=== PATIENT | male | born 1965 | race Caucasian/White ===

== ENCOUNTER → 2016-08-29 | Day surgery (SDC) | payer BC ==
[2016-08-06 11:18] LABS: HEMATOCRIT 42.2 % (42-52); MEAN CELL VOLUME 87.6 fL (80-100); MEAN CORPUSCULAR HEMOGLOBIN 30.9 pg (25-34); MEAN CORPUSCULAR HGB CONC 35.3 g/dl (32-36); PLATELET COUNT 309 K/uL (130-400); RED BLOOD COUNT 4.82 M/uL (4.7-6.1); WHITE BLOOD COUNT 6.94 K/uL (4.8-10.8)
[2016-08-06 11:44] LABS: BLOOD UREA NITROGEN 14 mg/dl (7-18); BUN/CREATININE RATIO 16.5 (10-20); CALCIUM 9.5 mg/dl (8.5-10.1); CARBON DIOXIDE 27 mmol/L (21-32); CHLORIDE 104 mmol/L (98-107); CREATININE 0.82 mg/dl (0.60-1.40); GLUCOSE 84 mg/dl (70-99); POTASSIUM 4.1 mmol/L (3.5-5.1); SODIUM 140 mmol/L (136-145)
[2016-08-16 12:54] VITALS: Ht 162.6 cm; Wt 84.1 kg
[~2016-08-29] VITALS: Ht 162.6 cm; Wt 84.1 kg
[~2016-08-29] MED LIST: ASPI325T45 EN; ATROPINE SULFATE 0.1 MG/ML 5ML SYR IV PRN; CEFAZOLIN 2000 MG/60 ML D5W IV SCH; DEXAMETHASONE SOD INJ 4 MG/ML VIAL ONE; EpHEDrine SULFATE INJ 50 MG/ML AMP IV PRN; FENTANYL CITRATE INJ 50 MCG/1 ML 2 ML VIAL IV PRN; FENTANYL CITRATE INJ 50 MCG/1 ML 2 ML VIAL ONE; GLUCTAB7 PO; KETOROLAC TROMETHAMINE 30 MG/ML VIAL ONE; LACTATED RINGER'S 1000ML 1,000 ML IV SCH; LIDOCAINE HCL 2% 2 ML VIAL (20MG/ML) ONE; LIDOCAINE/EPINEPHRINE 1% INJ 50 ML VIAL ONE; MIDAZOLAM HCL 1 MG/ML 2ML VIAL ONE; MULT-506 PO; MoRPHine SULFATE 2 MG/ML CARP IV PRN; ONDANSETRON INJ 2 MG/ML 2 ML VIAL IV PRN; ONDANSETRON INJ 2 MG/ML 2 ML VIAL ONE; OXYC-57 PO; OXYCODONE/ACETAMINOPHEN 5-325 TAB PO PRN; PROPOFOL IV EMULSION 10 MG/ML 20 ML VIAL IV ONE; SODIUM CHLORIDE 0.9% 1000ML 1,000 ML IV SCH
--- NOTE | 2016-08-29 14:13 | History & Physical Bridge Note ---
H&P Re-Evaluation Bridge Note: I have examined the patient, reviewed the History & Physical and in the interval since the performance of the History & Physical I have noted the following changes of clinical significance: No changes noted
--- NOTE | 2016-08-29 15:32 | [facility] Post Operative Brief Note ---
Immediate Operative Summary Operative Date Aug 29, 2016. Pre-Operative Diagnosis Left Knee Medial Meniscus Tear, Popliteal Cyst Post-Operative Diagnosis Same Procedure(s) Performed Left Knee Arthroscopy, Partial Medial Meniscectomy, Cyst Decompression Surgeon Dr. Potter Steel Layout Worker Surgeon(s) Man Guzman, Fellow, trevor ashley ms3 Estimated Blood Loss Minimal Findings medial meniscus tear Specimens None Anesthesia LMA Complication(s) None Disposition Recovery Room / PACU
--- NOTE | 2016-08-29 15:32 | Discharge Instructions-SurgCtr ---
Discharge Instructions Date of Service Aug 29, 2016. Visit Reason for Visit: Left Knee Medial Meniscus Tear, Popliteal Cyst Discharge Discharge Diagnosis / Problem: Status post left knee medial meniscectomy Discharge Goals Goal(s): Decrease discomfort, Improve function, Increase independence Medications Stopped Medications Name(s): no blood thinners Activity Recommendations Activity Limitations: per Instructions/Follow-up section Anesthesia . Post Anesthesia Instructions: If you have had General Anesthesia or IV Sedation: * Do not drive today. * Resume driving when surgeon permits. * Do not make important decisions or sign legal documents today. * Call surgeon for: 1. Temperature elevations greater than 101 degrees F. 2. Uncontrollable pain. 3. Excessive bleeding. 4. Persistent nausea and vomiting. 5. Medication intolerance (nausea, vomiting or rash). * For nausea and vomiting use only clear liquids such as: tea, soda, bouillon until nausea subsides, then gradually increase diet as tolerated. * If you have any concerns or questions, call your surgeon's office. If physician is unavailable and it is an emergency, call 911 or go to the nearest emergency room. . Instructions / Follow-Up Instructions / Follow-Up The following are instructions to follow after your Arthroscopic Knee Surgery. ACTIVITY RECOMMENDATIONS: * Minimize activity until your first visit after surgery. * No excessive walking, jogging, sports or laboring. * Return to activity is individualized. Most patients are able to return to every day activities within one month. * Return to sports or intensive labor usually occurs at 2-3 months. * Driving is not permitted until at least your first postoperative visit at a minimum. Please ask your doctor when it is safe to resume driving. If you have an automatic vehicle and your left leg has been operated on, then you may begin driving as soon as you are comfortable and can drive safely. SCHOOL/WORK RECOMMENDATIONS: * You may return to sedentary work or school when you are feeling more comfortable. This is usually 3-7 days after surgery. * Expect increased discomfort with increased activity. Continue to elevate and ice the leg as much as possible. MEDICATIONS: * You will have a prescription for pain medication and an anti-inflammatory medication after surgery. * Use the pain medication for severe pain and the anti-inflammatory for less severe pain. Once the pain medication has run out, try to use the anti-inflammatory medication. If this is not effective, contact the office for assistance. * The pain medication may cause nausea, constipation and drowsiness. You should see how they affect you before driving or similar activity. * The anti-inflammatory medication may cause stomach upset and bleeding. If this occurs let your doctor know immediately . * Take a stool softener like Colace or a laxative like Senokot to prevent constipation. DIET: * Resume previous diet. SPECIAL CARE: ICE: You have the option of an ice cooler, gel packs or ice bags. * If you have an ice cooler, refer to the instructions for that device. The ice cooler may be used continuously. * If you do not have an ice cooler, you will need to use ice bags or gel packs. Do not apply ice directly to the skin. Use a thin dressing or yancy shirt between the skin and ice bag. Apply ice for 20-30 minutes and repeat every 2-4 hours. This is especially important for the first 7-10 days after surgery. Once the pain improves, use ice as needed. ELEVATION: * Keep your leg elevated at or above the level of your heart as much as possible. * Expect some increased discomfort and swelling if you are standing for any length of time. * When lying down, avoid placing anything under your knee. Rather, prop your leg up by placing several pillows under your heel or calf. DRESSING: * Your dressing will be changed at your first therapy appointment approximately 4-5 days after surgery. Band-aids, tape strips or gauze may be applied. You may then change your dressing daily. * Reapply dressing followed by the True wrap or Tubi-porcelain mixer stockinet and EBIce cooling pad (if chosen). * Always wash your hands prior to touching the incision area. * Once the stitches are removed, you may leave the wound open to air or cover with an True wrap or Tubi-porcelain mixer stockinet. * If you have been given a white elastic stocking (CECILIA hose), wear as much as possible for the first 1-3 weeks depending on swelling. * Expect some bloody drainage for the first few days after surgery. * Leave the tape strips, if present, in place for 5-7 days. * Band-aids and gauze may be changed daily. CRUTCHES: * You will need to use crutches after surgery. * You may gradually progress to full weight bearing as tolerated and wean off the crutches unless otherwise advised. * Your therapist can provide assistance weaning off crutches. * Patients who have a microfracture done may need to be toe-touch weight- bearing for 4-6 weeks. BATHING: * You may shower or sponge-bathe immediately after surgery. * The dressing will need to be covered with a plastic bag or plastic wrap until the dressing is changed on the fourth or fifth day after surgery. * Once the dressing has been changed on the fourth or fifth day after surgery, you may shower and get the incision wet. * Wash with regular soap and water. * Do not bathe (submerge the incision), soak, swim or use a hot tub until the incision is completely healed over with normal skin and the doctor has given the OK to proceed. * There is no need to apply any ointments, powders or salves to your incision. * Do not apply alcohol or hydrogen peroxide directly to the incision. * Diluted peroxide (50:50 mixture with sterile saline) may be used to clean dried blood from around the incision area. BRACE: * Bracing is generally not needed after routine Arthroscopic Knee surgery. THERAPY: * You will begin therapy four or five days after surgery. * Organized therapy with the therapist is important for the first 4-6 weeks after surgery. During that time you will attend therapy 1-3 times per week. * You will also need to do daily exercises for range of motion and strength as instructed. PROBLEMS/QUESTIONS: * If you have any problems such as severe pain, numbness, tingling or high fevers or if you have any questions, please contact the office at [phone]. * It is not uncommon to have some numbness and tingling after the surgery especially if you have had a nerve block done. This should gradually improve over the first 1- 2 days. If this persists longer or worsens please contact the office. FOLLOW UP VISIT: * If not already scheduled, please call the office at to schedule a follow-up appointment for 10 days, 6 weeks and 3 months after surgery. Diet Recommendations Home Diet: no limitations, resume previous diet Procedures Procedures Performed: Left Knee Arthroscopy, Partial Medial Meniscectomy, Cyst Decompression Pending Studies Studies pending at discharge: no Medical Emergencies . Who to Call and When: Medical Emergencies: If at any time you feel your situation is an emergency, please call 911 immediately. . Non-Emergent Contact Non-Emergency issues call your: Surgeon Call Non-Emergent contact if: temperature is above 100.5, your pain is not controlled, wound has increased drainage . . "Provider Documentation" section prepared by Jose Felix.
--- NOTE | 2016-08-29 15:36 | [facility] Post Operative Brief Note ---
Immediate Operative Summary Operative Date Aug 29, 2016. Pre-Operative Diagnosis Left Knee Medial Meniscus Tear, Popliteal Cyst Post-Operative Diagnosis Same Procedure(s) Performed Left Knee Arthroscopy, Partial Medial Meniscectomy, Cyst Decompression Surgeon Dr. Potter Netsuite Developer Surgeon(s) Man Guzman, Fellow, trevor ashley ms3 Estimated Blood Loss Minimal Specimens None Complication(s) None Disposition PCU
--- NOTE | 2016-08-29 15:54 | OPERATIVE REPORT ---
DATE OF OPERATION: 08/29/2016 ADDENDUM His MCL was perforated with a spinal needle percutaneously to improve visualization of the medial compartment. I attest to the content of the Intraoperative Record and any orders documented therein. Any exceptio ns are noted below.
[2016-08-29 16:02] VITALS: TEMP 36.5
--- NOTE | 2016-08-29 16:05 | OPERATIVE REPORT ---
DATE OF OPERATION: 08/29/2016 PREOPERATIVE DIAGNOSIS: Left knee medial meniscus tear, popliteal cyst. POSTOPERATIVE DIAGNOSIS: Same. PROCEDURE: Left knee arthroscopy, partial medial meniscectomy and decompression of popliteal cyst. SURGEON: Dr. Potter. BI SOLUTIONS ARCHITECT: Jose Molina, fellow. No PA available. SECOND BI SOLUTIONS ARCHITECT: Maria R Fatima [facility] third year medical student. ANESTHESIA: Laryngeal mask. INDICATIONS OF PROCEDURE: The patient is a 50-year-old male with left knee pain. MRI shows medial meniscus tear. Treatment options discussed. He elected to proceed with operative intervention. PROCEDURE IN DETAIL: Informed consent was obtained. The patient was identified as Hilario Mensah. He identified the operative site as the left knee. I marked it with my initials. A preop surgical time out was performed. A preop dose of IV antibiotics was given. He was taken to the operating room, positioned supine on the operating room table. No tourniquet was applied. The leg was examined. A lateral post was used for stressing the knee. The limb was prepped and draped in usual sterile fashion. The exam showed range 0/0/135. He had medial and lateral old scars. There was no effusion. Cruciate and collateral stability was intact. DVT prophylaxis with foot pumps intraoperatively and postoperatively with early mobility and aspirin. 1% lidocaine with epinephrine was injected into the fat pad, portal sites and knee joint preoperatively approximately 12 mL. An inferolateral viewing portal, superolateral outflow portal, and inferomedial working portals were established. Diagnostic arthroscopy was performed after routine prep and drape. The suprapatellar pouch, articular surfaces of the patella and trochlea were normal. The medial and lateral gutters were normal. There were no loose bodies. The retropatellar fat pad was resected. The cruciate ligaments were normal. The lateral compartment showed grade 1 softening of the lateral tibial plateau and otherwise the cartilage in the lateral compartment and the meniscus were normal. Posterolateral compartment popliteal tendon and hiatus were normal. In the medial compartment a small radial tear of the posterior portion of the meniscus was noted along with complex undersurface tearing with unstable fragments and compromised meniscal quality. This was not a repairable tear. Basket forceps and motorized shaver were utilized to debride this back to a stable balanced and contoured rim. The meniscus was probed extensively and there were no hidden fragments. The meniscal roots were intact. The articular surfaces were normal, posteromedial compartment view was normal. Spinal needle localization was utilized to establish a posteromedial portal incising only the skin and then using obturator down into the joint. This was followed by insertion of the cannula. The flap of capsule that causes the ball valve effect was identified and debrided with basket forceps and a motorized shaver. The posterior capsule was debrided. I could not express any cyst fluid. The arthroscopic instruments were removed. The portals were closed with 4-0 nylon, soft sterile dressing was applied. The patient was awakened from anesthesia without difficulty and taken to recovery in stable condition. There were no specimens or complications. Counts were correct at the end of case. Blood loss was minimal. At the conclusion of the operation, I spoke to patient's and informed her of my findings. Postoperative instructions were given. He can weightbear as tolerated and will be rehabilitated according to the arthroscopic partial meniscectomy protocol and he will have aspirin beginning tomorrow morning for DVT prophylaxis. I attest to the content of the Intraoperative Record and any orders documented therein. Any exceptio ns are noted below.
[2016-08-29 16:38] VITALS: BP 138/84; PULSE 80; O2SAT 98
--- NOTE | 2016-08-29 16:48 | Anesthesia Progress Nt - [facility] ---
Anesthesia Post Op Note Date & Time Aug 29, 2016 at 16:48 Vital Signs Pain Intensity: 4 Vital Signs Past 12 Hours Date Time Temp Pulse Resp B/P Pulse Ox O2 Delivery O2 Flow Rate FiO2 08/29/16 16:02 36.5 73 16 138/89 96 08/29/16 16:02 36.5 73 16 138/89 96 Room Air 08/29/16 15:57 36.4 78 16 138/91 95 Room Air 08/29/16 15:51 75 11 95 08/29/16 15:51 76 11 08/29/16 15:50 138/91 08/29/16 15:46 77 15 96 08/29/16 15:46 77 15 08/29/16 15:45 139/88 08/29/16 15:41 83 17 95 08/29/16 15:41 84 17 08/29/16 15:40 81 14 08/29/16 15:40 82 14 96 08/29/16 15:35 82 13 146/97 99 08/29/16 15:35 82 13 08/29/16 15:30 86 12 08/29/16 15:30 88 12 142/89 99 08/29/16 15:26 167/90 08/29/16 15:25 36.5 87 20 167/90 98 Diffusion Mask 6 08/29/16 11:04 36.8 69 16 135/89 96 Room Air Notes Mental Status: alert / awake / arousable, participated in evaluation Pt Amnestic to Procedure: Yes Nausea / Vomiting: adequately controlled Pain: adequately controlled Airway Patency, RR, SpO2: stable & adequate BP & HR: stable & adequate Hydration State: stable & adequate Anesthetic Complications: no major complications apparent
--- NOTE | 2016-08-29 16:49 | Medical Student: [facility] ---
Immediate Operative Summary Operative Date Aug 29, 2016. Pre-Operative Diagnosis Complex tear of left medial meniscus, left large popliteal cyst Post-Operative Diagnosis Same as above Procedure(s) Performed Left knee arthroscopy, left partial medial meniscectomy, decompression of left popliteal cyst Surgeon Dr. Potter Arcgis Developer Surgeon(s) Maria R Marie MS3 Estimated Blood Loss Trace Fluids (cc crystalloids) 1300 cc Specimens None Drains None Anesthesia LMA Complication(s) None Disposition Recovery Room / PACU
== END | disposition home or self-care (01) ==
LOC: X.SURG 10:46
PROVIDERS: ATTEND Physical Medicine & Rehabilitation Sports Medicine
DX: M23.232 Derangement of other medial meniscus due to old tear or injury, left knee (principal); M71.22 Synovial cyst of popliteal space [Baker], left knee; K57.30 Diverticulosis of large intestine without perforation or abscess without bleeding; L25.9 Unspecified contact dermatitis, unspecified cause; Z98.890 Other specified postprocedural states